=== PATIENT | female | born 1970 | race Hispanic/Latino ===

== ENCOUNTER 2017-11-10 07:54 | Emergency (ER) | payer MEDICAID ==
[2017-11-10] MEDS ORDERED: KETOROLAC TROMETHAMINE 30MG/ML ONE (08:39)
== END 2017-11-10 09:30 | disposition home or self-care (01) ==
LOC: EDH 07:54
DX: M62.838 Other muscle spasm (principal); M54.2 Cervicalgia; E11.9 Type 2 diabetes mellitus without complications; E78.5 Hyperlipidemia, unspecified
CPT/HCPCS: 96372; 99283; J1885

== ENCOUNTER → 2022-10-18 | Outpatient (CLI) | payer MEDICAID | END | disposition home or self-care (01) | LOC: RAH 14:40 | PROVIDERS: ATTEND Urology | DX: N20.0 Calculus of kidney (principal); N20.2 Calculus of kidney with calculus of ureter | CPT/HCPCS: 74018; 76100 ==

== ENCOUNTER 2022-10-27 08:00 | Day surgery (SDC) | payer MEDICAID ==
[2022-10-25 10:50] LABS: BASOPHILS % (AUTO) 0.4 % (0.0-5.0); EOSINOPHILS % (AUTO) 3.6 % (0.0-8.0); HEMATOCRIT 41.9 % (36-48); LYMPHOCYTES % (AUTO) 35.9 % (21.0-51.0); MEAN CORPUSCULAR HEMOGLOBIN 30.9 pg (27.0-33.0); MEAN CORPUSCULAR HGB CONC 33.9 g/dL (32.0-36.0); MEAN CORPUSCULAR VOLUME 91.3 fL (79-99); MONOCYTES % (AUTO) 8.1 % (3.0-13.0); NEUTROPHILS % (AUTO) 51.8 % (40.0-77.0); PLATELET COUNT (AUTO) 219 K/uL (130-400); RED BLOOD CELL COUNT(AUTO) 4.59 MIL/uL (4.00-5.50); RED CELL DISTRIBUTION WIDTH 12.6 % (11.0-15.5); WHITE BLOOD COUNT (AUTO) 4.7 K/uL (4.8-10.8)
[2022-10-25 11:01] LABS: CREATININE 0.8 mg/dL (0.5-1.5); POTASSIUM 4.3 mmol/L (3.5-5.1)
[2022-10-25 11:03] LABS: INR 0.94 (0.85-1.15); PROTHROMBIN TIME 10.3 SEC (9.6-11.6)
[2022-10-25 11:04] LABS: PARTIAL THROMBOPLASTIN TIME 24.8 SEC (26.3-35.5)
[2022-10-26 10:20] VITALS: BP 112/70
[~2022-10-27] VITALS: Ht 152.4 cm; Wt 67.9 kg
[2022-10-27 08:00] VITALS: BP 97/58
[2022-10-27] MEDS ORDERED: IOHEXOL-350 50ML VIAL IV ONE (09:37)
[2022-10-27 10:48] VITALS: BP 96/73
[2022-10-27 11:10] VITALS: BP 113/67
== END 2022-10-27 11:10 | disposition home or self-care (01) ==
LOC: DAH 08:00
PROVIDERS: ATTEND Urology
DX: N20.2 Calculus of kidney with calculus of ureter (principal); E11.9 Type 2 diabetes mellitus without complications; E78.49 Other hyperlipidemia; F06.4 Anxiety disorder due to known physiological condition; Z79.01 Long term (current) use of anticoagulants; Z79.899 Other long term (current) drug therapy; Z88.8 Allergy status to other drugs, medicaments and biological substances; Z90.49 Acquired absence of other specified parts of digestive tract; Z98.891 History of uterine scar from previous surgery
CPT/HCPCS: 80048; 85025; 85610; 85730; 36415; 50430; 82948 ×2; A4663; Q9967

== ENCOUNTER → 2023-01-16 | Outpatient (CLI) | payer MEDICAID | END | disposition home or self-care (01) | LOC: RAH 09:27 | PROVIDERS: ATTEND Urology | DX: N20.0 Calculus of kidney (principal); I87.8 Other specified disorders of veins; Z90.49 Acquired absence of other specified parts of digestive tract | CPT/HCPCS: 74018; 76100 ==

== ENCOUNTER → 2023-02-14 | Outpatient (CLI) | payer MEDICAID | END | disposition home or self-care (01) | LOC: RAH 11:42 | PROVIDERS: ATTEND Urology | DX: N20.0 Calculus of kidney (principal) | CPT/HCPCS: 74018; 76100 ==